=== PATIENT | male | born 1955 | race Caucasian/White ===

== ENCOUNTER → 2020-02-14 14:32 | Outpatient (CLI) | payer OTHER, SELFPAY ==
[2016-01-29 04:33] VITALS: BMI 27.8
[2020-02-14 15:24] LABS: PTHIN 43.6 pg/mL (18.4-80.1)
[2020-02-14 15:27] LABS: Cholesterol 148 mg/dL (200); High Density Lipoprotein 37 mg/dL; Triglycerides 88 mg/dL; Very Low Density Lipoprotein 18 mg/dL (5-40)
== END ==
PROVIDERS: PCP Family Medicine; Referring Provider Family Medicine; Visit Provider Family Medicine
DX: E78.2 Mixed hyperlipidemia (principal); E21.0 Primary hyperparathyroidism
CPT/HCPCS: 80061; 83970

== ENCOUNTER → 2020-02-18 10:47 | Outpatient (CLI) | payer OTHER, SELFPAY ==
[2016-01-29 04:33] VITALS: BMI 27.8
[2020-02-18 11:17] LABS: Cholesterol 149 mg/dL (200); High Density Lipoprotein 38 mg/dL; PTHIN 32.5 pg/mL (18.4-80.1); Triglycerides 111 mg/dL; Very Low Density Lipoprotein 22 mg/dL (5-40)
[2020-02-18 11:22] LABS: Vitamin D,25 Hydroxy 61.3 ng/mL
== END ==
PROVIDERS: PCP Family Medicine; Referring Provider Family Medicine; Visit Provider Family Medicine
DX: R79.89 Other specified abnormal findings of blood chemistry (principal); E21.0 Primary hyperparathyroidism; E78.2 Mixed hyperlipidemia
CPT/HCPCS: 80061; 82306; 83970

== ENCOUNTER → 2020-10-10 14:12 | Outpatient (CLI) | payer MEDICARE, SELFPAY | PROVIDERS: PCP Family Medicine; Referring Provider Family Medicine; Visit Provider Family Medicine | DX: R31.0 Gross hematuria (principal) | CPT/HCPCS: 87086 ==

== ENCOUNTER → 2020-10-12 17:17 | Outpatient (CLI) | payer MEDICARE, SELFPAY ==
[2020-10-13 13:44] LABS: Cytology, Body Fluid / CSF SEE PATHOLOGY REPORT
== END ==
PROVIDERS: PCP Family Medicine
DX: R31.0 Gross hematuria (principal)
CPT/HCPCS: 87086; 88108; 88313

== ENCOUNTER 2024-12-14 09:14 | Emergency (ER) | payer MEDICARE, SELFPAY ==
[2024-12-14 09:14] VITALS: BP 135/77; PULSE 65; RESP 14; TEMP 36.6; O2SAT 98; BMI 27.8
--- NOTE | 2024-12-14 09:19 | EX.ED.UPPERE ---
HPI History of Present Illness Chief Complaint: Upper Extremity Injury [facility] Medical History (Updated 12/14/24 @ 10:43 by Yolanda Saxena) Fusion of spine High blood cholesterol Home Medications ?Medication ?Instructions ?Recorded ?Last Taken ?Type aspirin 81 mg capsule 81 mg PO DAILY 12/14/24 12/13/24 History atorvastatin 10 mg tablet 10 mg PO DAILY 12/14/24 12/13/24 History prednisone 20 mg tablet 20 mg PO DAILY 5 days #5 tabs 12/14/24 Unknown Rx Allergy/AdvReac Type Severity Reaction Status Date / Time No Known Allergies Allergy Verified 12/14/24 09:15 Surgical History (Updated 12/14/24 @ 10:43 by Yolanda Saxena) Status post biopsy of thyroid gland History of thyroid surgery Social History Smoking Status: Never smoker EXAM Physical Exam Const Vital Signs: 12/14/24 09:14 Temperature 98 F Temperature Source Temporal Pulse Rate 65 Respiratory Rate 14 Blood Pressure 135/77 H Blood Pressure Mean 96 Pulse Ox 98 MDM MDM MDM Narrative Medical decision making narrative: HISTORY OF PRESENT ILLNESS: Chief complaint: Bilateral shoulder and bilateral hand pain for 3 to 4 weeks. 69 M here with bilateral shoulder bilateral hand pain for 3 to 4 weeks. Denies injury. Per the patient's given the shoulder pain she was concerned that he could be having a heart issue. Patient denies chest pain or shortness of breath. The patient denies recent surgery in the last 4 weeks or immobilization in the last 3 days, denies previous diagnosis of DVT or PE, hemoptysis, unilateral leg swelling or malignancy with treatment the last 6 months or palliative. No estrogen use noted. Patient denies sudden onset of pain, no tearing sensation, no migratory symptoms, no new numbness, weakness or loss of sensation. Patient denies family history or personal history of Connective tissue disorders (Marfan's Syndrome, Alena Danlos etc). Denies dyspnea on exertion. Lower extremity edema orthopnea. Denies cough fever chills. REVIEW OF SYSTEMS: Pertinent positives: Shoulder and hand pain Pertinent negatives: Fever, trauma PHYSICAL EXAM: Nursing triage notes reviewed, Vital signs reviewed Constitutional: please see mdm HENT: MMM Eyes: Pupils equal round and reactive to light, Extraocular muscles intact Neck: No stridor, no JVD, full neck ROM Lungs: Clear to auscultation, No wheezing or rales. No increased work of breathing, no conversational dyspnea, no accessory muscle use, no nasal flaring. No respiratory distress noted Heart: Regular rate and rhythm, No murmurs, No rubs and No gallops, 2+ distal pulses (radial, femoral, posterior tibial) in all extremities Abdomen: Soft, there is no tenderness, rigidity, rebound or guarding, no obvious peritoneal signs, no palpable pulsatile abdominal masses, no auscultated abdominal bruit : No CVAT Extremities: No edema, full range of motion, 5 of 5 strength, intact sensation in bilateral upper extremities. Compartments are soft. No obvious joint effusion. No pain out of proportion to exam. Neuro: No new focal neurological deficits, cranial nerves II through XII intact, 5/5 strength in all present extremities. Intact sensation to light touch in all present extremities, 2+ reflexes bilateral patella tendons. Skin: No rash or lesions noted MEDICAL DECISION MAKING: Chief Complaint: please see HPI External records reviewed: Reviewed prior imaging studies Factors affecting care: none Social determinants of health: none History obtained from others: none Consults: none [facility] Narrative: Patient was initially hemodynamically stable, afebrile and nontoxic-appearing. Exam without obvious deformity or bony abnormality. Full range of motion in bilateral hands and shoulders. No obvious step-offs or clavicular tenderness noted. No focal cardiopulmonary abnormalities noted I considered the following differential diagnosis: Arrhythmia, myocardial anemia, bony injury to the hands or shoulder ALL IMAGES (IF OBTAINED) HAVE BEEN PERSONALLY REVIEWED AND INTERPRETED BY MYSELF. EKG with sinus bradycardia 53, prolonged CT interval, for screw block, no sign of high degree block, left ax deviation, no STEMI X-rays of bilateral shoulders, bilateral hands) reviewed person myself showed no evidence of obvious bony abnormality. The synthesis of the patient's history, physical exam, labs images suggest no acute life-limiting etiology. Specifically no sign of abnormal heart rhythm or sign of ACS. Imaging showed no signs of traumatic injury. Exam was not consistent with a limb-threatening etiology specifically no sign of septic arthritis, necrotizing fasciitis, compartment syndrome, arterial occlusion. Patient's symptoms likely inflammatory in origin. Will give a short course of steroids and rheumatology follow-up. The patient and/or family, caregivers express understanding. The patient and/or family, caregivers agrees with the plan. Shared decision making: I will have a discussion with the patient and or visitors regarding risk/benefits of further testing or admission. They will be made aware of of the risk/benefits inherent in this decision they will be given the opportunity to voice understanding. Total critical care time today provided was at least 0 [] minutes. This excludes separately billable procedures. Critical care time (if documented) is secondary to the patient having high probability of clinically significant/life threatening deterioration in the patient's condition which required my urgent intervention. Impression: 1. Arthralgias Dispo: Discharge home This note was generated with [employer] dictation software. It may contain incorrect words, spelling, and punctuation that were not noted in review of the chart prior to signing. Discharge Plan Triage Chief Complaint: Upper Extremity Injury ED Provider: Danny Gu Dx/Rx/DC Orders Instructions: ED Arthralgia Prescriptions: New prednisone 20 mg tablet 20 mg PO DAILY 5 Days Qty: 5 0RF No Action atorvastatin 10 mg tablet 10 mg PO DAILY aspirin 81 mg capsule 81 mg PO DAILY Primary Care Provider: Sid Davison Referrals: Altagracia Hi MD [Med Staff - [employer] Supervisor] - Activity Restrictions/Additional Instructions: Thank you for trusting us with your care today! Your EKG and imaging were reassuring. Please take Tylenol (2 pills, 650 mg), ibuprofen (2 pills, 400 mg) every 6 hours as needed for pain and fever control. Please take prednisone as prescribed Please return to the emergency department if your symptoms change or worsen. Please follow with your primary care physician and/or rheumatology for further outpatient evaluation and management. Print Language: Persian Disposition Disposition: Home, Self Care
--- NOTE | 2024-12-14 10:02 | EKG12_ITS ---
Test Reason : GENERAL Blood Pressure : */* mmHG Vent. Rate : 53 BPM Atrial Rate : 53 BPM P-R Int : 210 ms QRS Dur : 82 ms QT Int : 442 ms P-R-T Axes : 29 -10 2 degrees QTcB Int : 414 ms Sinus bradycardia with 1st degree A-V block Otherwise normal ECG Confirmed by Maxime Blake ([id number]), purchasing expeditor JANETH MOORE ([id number]) on 12/17/2024 12:01:51 PM Referred By: STACEY Confirmed By: Maxime Blake
--- NOTE | 2024-12-14 10:20 | RAD_ITS ---
PROCEDURE: SHOULDER MIN 2 VIEWS, 12/14/2024 REASON FOR EXAM: PAIN TECHNIQUE: AP, Grashey, scapular Y, and axillary views of the LEFT shoulder were obtained. COMPARISON: None FINDINGS: Fracture/dislocation: None visible. Joint space(s): Mild glenohumeral and AC joint space loss. Soft tissues: Unremarkable. Foreign bodies: None visible. Bone mineralization: Demineralization. Other: Cervical spondylosis minimally imaged and not well evaluated. RAD/Shoulder min 2 Views IMPRESSION: 1. Demineralization without visible acute displaced fracture.. 2. Degenerative findings as above. Reading Location: [id number]
--- NOTE | 2024-12-14 10:20 | RAD_ITS ---
PROCEDURE: SHOULDER MIN 2 VIEWS, 12/14/2024 REASON FOR EXAM: PAIN TECHNIQUE: AP, Grashey, scapular Y, and axillary views of the RIGHT shoulder were obtained COMPARISON: None FINDINGS: Fracture/dislocation: None visible. Joint space(s): Mild loss of glenohumeral joint space. [id number] loss of AC joint space without bony hypertrophic changes. Soft tissues: Unremarkable. Foreign bodies: None visible. Bone mineralization: Demineralization. Other: Minimally imaged cervical and partially imaged thoracic spondylosis are not well evaluated. RAD/Shoulder min 2 Views IMPRESSION: 1. Demineralization without visible acute displaced fracture. 2. Degenerative findings as above. Reading Location: [facility]
--- NOTE | 2024-12-14 10:20 | RAD_ITS ---
PROCEDURE: HAND MIN 3 VIEWS, 12/14/2024 REASON FOR EXAM: PAIN TECHNIQUE: PA, lateral, and oblique views of the LEFT hand were obtained. COMPARISON: None FINDINGS: Fracture/dislocation: None visible. Joint space(s): Diffuse mild/moderate loss of joint space in the IP joints. Moderate to advanced loss of joint space at the 1st CMC with hypertrophic degenerative changes. Soft tissues: Grossly unremarkable. Foreign bodies: None visible. Bone mineralization: Demineralization. Other: None. RAD/Hand Min 3 Views IMPRESSION: 1. Demineralization without visible acute displaced fracture.. 2. Degenerative findings as above. Reading Location: [id number]
--- NOTE | 2024-12-14 10:20 | RAD_ITS ---
PROCEDURE: HAND MIN 3 VIEWS, 12/14/2024 REASON FOR EXAM: PAIN TECHNIQUE: PA, lateral, and oblique views of the RIGHT hand were obtained. COMPARISON: None FINDINGS: Fracture/dislocation: None visible. Joint space(s): Diffuse mild IP joint space loss. Moderate 1st CMC joint space loss. Soft tissues: Grossly unremarkable. Foreign bodies: None visible. Bone mineralization: Demineralization. Other: None. RAD/Hand Min 3 Views IMPRESSION: 1. Demineralization without visible acute displaced fracture.. 2. Degenerative findings as above. Reading Location: [id number]
[2024-12-14 11:51] VITALS: BP 135/77; PULSE 65; RESP 14; TEMP 36.6; O2SAT 98
[2024-12-14] MEDS: predniSONE 20 MG Tablet PO (11:51)
== END 2024-12-14 11:52 | disposition home or self-care (01) ==
PROVIDERS: Emergency Provider Emergency Medicine; PCP Family Medicine; Visit Provider Emergency Medicine
DX: M25.511 Pain in right shoulder (principal); M25.512 Pain in left shoulder; M79.641 Pain in right hand; M79.642 Pain in left hand; E78.00 Pure hypercholesterolemia, unspecified; Z79.82 Long term (current) use of aspirin; Z79.899 Other long term (current) drug therapy
CPT/HCPCS: 73030; 73130; 93005; 99282; A4216